=== PATIENT | male | born 1975 | race Caucasian/White ===

== ENCOUNTER 2017-09-28 14:43 | Emergency (ER) | payer SELFPAY ==
[2017-09-28 15:06] VITALS: BP 128/75
[2017-09-28] MEDS ORDERED: Cephalexin CAP* 500 MG PO ONE (16:11)
[2017-09-28] MEDS ORDERED: Tetan/Diph/Pertus SYR(Tdap)* 0.5 ML SYR(BOOSTRIX) use SYR IM ONE (16:11)
--- NOTE | 2017-09-28 16:17 | ED ---
Upper Extremity Pain - HPI Summary HPI Summary: 42yr old male with the complaint of injury to left middle finger. Cut with a razor knife when cutting through heavy plastic on transfer case of his car. Hit finger with a lot of force and cut very deep over the distal phalynx left middle finger volar surface. he has a lot of numbness to the tip. Doesn't know last tetanus shot. - History of Current Complaint Chief Complaint: UCLaceration Stated Complaint: LEFT MIDDLE FINGER LAC Time Seen by Provider: 09/28/17 16:00 - Allergies/Home Medications Allergies/Adverse Reactions: Allergies Allergy/AdvReac Type Severity Reaction Status Date / Time No Known Allergies Allergy Verified 09/28/17 15:03 Home Medications: Home Medications NK [No Home Medications Reported] 09/28/17 [History Confirmed 09/28/17] PMH/Surg Hx/FS Hx/Imm Hx Previously Healthy: Yes - Surgical History Surgery Procedure, Year, and Place: L leg surgery- knee Infectious Disease History: No Infectious Disease History: Denies: Traveled Outside the [place] in Last 30 Days - Family History Known Family History: Positive: None - Social History Occupation: Employed Full-time Alcohol Use: Weekly Alcohol Amount: 12 pack weekly Substance Use Type: Reports: None Smoking Status (MU): Never Smoked Tobacco Review of Systems Constitutional: Negative Positive: Other - left middle finger tip lac. Positive: Numbness - left middle finger tip lateral side and tip All Other Systems Reviewed And Are Negative: Yes Physical Exam Triage Information Reviewed: Yes Vital Signs On Initial Exam: Initial Vitals Temp Pulse Resp BP Pulse Ox 98 F 54 14 128/75 100 09/28/17 15:01 09/28/17 15:01 09/28/17 15:01 09/28/17 15:01 09/28/17 15:01 Vital Signs Reviewed: Yes Appearance: Positive: Well-Appearing, No Pain Distress Skin: Positive: Warm, Skin Color Reflects Adequate Perfusion Head/Face: Positive: Normal Head/Face Inspection Eyes: Positive: EOMI Neck: Positive: Supple, Nontender Respiratory/Lung Sounds: Positive: Clear to Auscultation, Breath Sounds Present Cardiovascular: Positive: RRR, Other - decreased cap refill left distal middle finger tip. Abdomen Description: Negative: Distended Musculoskeletal: Positive: Strength/ROM Intact, Other - left middle finger with 3 cm laceration that is deep on volar surface distal middle finger. Two point discrimination absent lateral finger distally. Color is cyanotic to the fat pad area and decreased cap refill Neurological: Positive: Alert, Oriented to Person Place, Time, CN Intact II-III , Speech Normal. Negative: Sensory/Motor Intact - absent two point discrimination of the left middle finger lateral distal tip., Normal Gait Psychiatric: Positive: Normal - Darrian Coma Scale Best Eye Response: 4 - Spontaneous Best Motor Response: 6 - Obeys Commands Best Verbal Response: 5 - Oriented Coma Scale Total: 15 Diagnostics - Vital Signs Vital Signs Temp Pulse Resp BP Pulse Ox 09/28/17 15:01 98 F 54 14 128/75 100 - Laboratory Lab Statement: Any lab studies that have been ordered have been reviewed, and results considered in the medical decision making process. - Radiology left middle finger Xray Interpretation: No Acute Changes Radiology Interpretation Completed By: Radiologist Course/Dx - Course Course Of Treatment: 42 yr old male with digital nerve injury, and question viability of skin/fat pad distal to the deep laceration. Tetanus updated, and keflex given. he is going to drive to [facility] ER for further eval by hand specialists. HIS left middle finger laceration was irrigated under 18 gauge pressure with 500 CC of NS, and sterile dressing applied. - Diagnoses Provider Diagnoses: Digital nerve injury, Laceration of finger Discharge - Sign-Out/Discharge Documenting (check all that apply): Discharge/Admit/Transfer - Discharge Plan Condition: Good Disposition: TRANS HIGHER LVL OF CARE FAC Patient Education Materials: Finger Laceration (ED) Referrals: No Primary Care Phys,NOPCP [Primary Care Provider] - Additional Instructions: Emergency Department, [facility] Map & directions [facility] [place] [address] Be Sure to go to the ER in [place], immediately upon leaving here for further evaluation. - Billing Disposition and Condition Condition: GOOD Disposition: Trans Higher Lvl of Care Fac
--- NOTE | 2017-09-28 16:33 | RAD ---
Indication: Left finger injury. 3 views of left middle finger demonstrates soft tissue defect on the volar aspect of the distal phalanx. No fracture or foreign body is identified. IMPRESSION: No bony involvement is noted. No radiopaque foreign body is identified.
== END 2017-09-28 16:41 | disposition short-term general hospital (02) ==
LOC: UCCORT 14:43
DX: S64.493A Injury of digital nerve of left middle finger, initial encounter (principal); S61.213A Laceration without foreign body of left middle finger without damage to nail, initial encounter; W26.0XXA Contact with knife, initial encounter; Y93.89 Activity, other specified; Y92.9 Unspecified place or not applicable
CPT/HCPCS: 73140; 90471; 90715; 99202; A9270-GY; G0463